=== PATIENT | female | born 1960 | race Two or more races ===

== ENCOUNTER 2021-03-23 08:23 | Outpatient (CLI) | payer OTHER | END 2021-03-23 08:48 | disposition home or self-care (01) | LOC: MAMO-SONO 08:23 | PROVIDERS: ATTEND Obstetrics & Gynecology | DX: N63.10 Unspecified lump in the right breast, unspecified quadrant (principal); N63.20 Unspecified lump in the left breast, unspecified quadrant; Z12.31 Encounter for screening mammogram for malignant neoplasm of breast; Z87.898 Personal history of other specified conditions; N64.59 Other signs and symptoms in breast ==

== ENCOUNTER 2021-03-27 13:25 | Outpatient (CLI) | payer OTHER | END 2021-03-27 13:30 | disposition home or self-care (01) | LOC: NUCLEAR 13:25 | PROVIDERS: ATTEND General Practice | DX: M81.0 Age-related osteoporosis without current pathological fracture (principal); M85.80 Other specified disorders of bone density and structure, unspecified site ==

== ENCOUNTER 2021-04-03 07:32 | Outpatient (CLI) | payer OTHER | END 2021-04-03 07:52 | disposition home or self-care (01) | LOC: SONOGRAMA 07:32 | PROVIDERS: ATTEND General Practice | DX: R10.84 Generalized abdominal pain (principal); R10.11 Right upper quadrant pain; R10.31 Right lower quadrant pain; E03.8 Other specified hypothyroidism ==

== ENCOUNTER 2022-04-22 12:07 | Outpatient (CLI) | payer OTHER | END 2022-04-22 12:26 | disposition home or self-care (01) | LOC: MAMO-SONO 12:07 | PROVIDERS: ATTEND Obstetrics & Gynecology | DX: N93.8 Other specified abnormal uterine and vaginal bleeding (principal); N83.291 Other ovarian cyst, right side; Z12.31 Encounter for screening mammogram for malignant neoplasm of breast; N64.51 Induration of breast ==